=== PATIENT | male | born 1930 | race Caucasian/White ===

== ENCOUNTER → 2017-04-06 | Outpatient (CLI) | payer MEDICARE ==
[~2017-04-06] MED LIST: ECOTRIN81 M1 PO; Ecotrin325 MG PO; LATANOPROST2.5 ML OU; TRIAMTERENE W/H1 CAP PO; ZOLOFT50 MG PO
== END | disposition home or self-care (01) ==
LOC: US 12:46
DX: E04.1 Nontoxic single thyroid nodule (principal)

== ENCOUNTER → 2017-04-07 | Outpatient (CLI) | payer MEDICARE | END | disposition home or self-care (01) | LOC: CT 03:41 | DX: K86.2 Cyst of pancreas (principal); R16.1 Splenomegaly, not elsewhere classified; Z90.49 Acquired absence of other specified parts of digestive tract; Z98.890 Other specified postprocedural states ==

== ENCOUNTER 2017-12-18 12:27 | Emergency (ER) | payer MEDICARE ==
[~2017-12-18] VITALS: Ht 177.8 cm; Wt 95.3 kg
--- NOTE | ~2017-12-18 | EKG ---
[place], [place] ELECTROCARDIOGRAM REPORT NAME: GREGORIO GOODSON UNIT #: [id number] ROOM: DOCTOR: EPIPHANY DRAFT REPORT BIRTHDATE: [birth year] [facility] Test Date: 2017-12-18 Test Time: 13:11:23 Pat Name: GREGORIO GOODSON Department: ER Room: Gender: Safety Lead: : 1930 Requested By: DAVINA MORE Order Number: [id number] Reading MD: Calvin Dale MD Measurements Intervals [place] Rate: 79 P: -34 KS: 197 QRS: -10 QRSD: 139 T: 22 QT: 401 QTc: 460 Interpretive Statements Sinus rhythm Ventricular premature complex Right bundle branch block Electronically Signed On 12-18-2017 16:50:59 PDT by Calvin Dale MD CM:EKGRPT:ELECTROCARDIOGRAM REPORT 1311 1650 DAVINA SANTIAGO DRAFT REPORT DAVINA MORE MD
[2017-12-18] MEDS ORDERED: NORVASC5 MG PO (13:19)
[2017-12-18 13:22] LABS: BUN 19 mg/dl (7-24); CHLORIDE 100 mmol/L (98-107); CREATININE 0.92 mg/dL (0.70-1.30); POTASSIUM 4.5 mmol/L (3.5-5.1); SODIUM 137 mmol/L (136-145); TROPONIN I 0.025 ng/ml (<0.045)
== END 2017-12-18 13:35 | disposition home or self-care (01) ==
LOC: ED 12:27
PROVIDERS: Emergency Medicine
DX: I10 Essential (primary) hypertension (principal); Z90.49 Acquired absence of other specified parts of digestive tract; Z87.891 Personal history of nicotine dependence; Z79.82 Long term (current) use of aspirin

== ENCOUNTER 2018-01-01 10:05 | Emergency (ER) | payer MEDICARE ==
[~2018-01-01] VITALS: Ht 170.1 cm; Wt 95.3 kg
[~2018-01-01 10:05] MED LIST changes: +NORVASC5 MG PO
[2018-01-01 10:30] LABS: BASO % 0.5 % (0.0-1.0); EOS % 0.3 % (1.0-4.0); HEMATOCRIT 40.9 % (42.0-52.0); HEMOGLOBIN 13.6 g/dl (14.0-18.0); LYMPH # 0.7 10*3/uL (1.3-4.4); LYMPH % 8.7 % (27.0-41.0); MEAN CELL VOLUME 90.3 fl (80.0-94.0); MEAN CORPUSCULAR HGB CONC 33.3 g/dl (33.0-37.0); MEAN PLATELET VOLUME 9.5 fl (9.6-12.3); MONO # 0.5 10*3/uL (0.1-1.0); MONO % 6.7 % (3.0-9.0); NEUT # 6.6 10*3/uL (2.3-7.9); NEUT % 83.5 % (47.0-73.0); PLATELET COUNT AUTOMATED 162 10*3/uL (130-400); RED BLOOD COUNT 4.53 10*6/uL (4.50-5.90); RED CELL DISTRI WIDTH 12.9 % (0-14.5); WHITE BLOOD COUNT 7.9 10*3/uL (4.8-10.8)
[2018-01-01 10:54] LABS: URINE AMPHETAMINES < 1000 (1000ng/ml); URINE BARBITURATES < 200 (200ng/ml); URINE BENZODIAZEPINES < 200 (200ng/ml); URINE CANNABINOIDS (THC) < 50 (50ng/ml); URINE COCAINE < 300 (300ng/ml); URINE METHADONE < 300 (300ng/ml); URINE OPIATES < 300 (300ng/ml)
[2018-01-01 10:55] LABS: ALBUMIN 3.7 gm/dl (3.1-4.5); ALKALINE PHOSPHATASE 78 U/L (45-117); BUN 19 mg/dl (7-24); CHLORIDE 98 mmol/L (98-107); CREATININE 0.95 mg/dL (0.70-1.30); POTASSIUM 4.4 mmol/L (3.5-5.1); SGOT/AST 20 IU/L (3-35); SGPT/ALT 20 U/L (12-78); SODIUM 135 mmol/L (136-145); TOTAL PROTEIN 8.6 gm/dL (6.4-8.2)
[2018-01-01 10:57] LABS: URINE PHENCYCLIDINE < 25 (25ng/ml)
[2018-01-01 10:58] LABS: ACETAMINOPHEN (TYLENOL) < 5.0 ug/ml (10-30); ETHYL ALCOHOL < 3.0 mg/dl (<3)
[2018-01-01 10:59] LABS: BILIRUBIN NEGATIVE (NEGATIVE); BLOOD NEGATIVE (NEGATIVE); CLARITY CLEAR (CLEAR); COLOR YELLOW (YELLOW); GLUCOSE NEGATIVE (NEGATIVE); KETONE NEGATIVE (NEGATIVE); LEUKO ESTERASE NEGATIVE (NEGATIVE); NITRITE NEGATIVE (NEGATIVE); SPECIFIC GRAVITY >= 1.030 (1.005-1.030); UROBILINOGEN 0.2 E.U./dl (0.2-1.0)
[2018-01-01 11:09] LABS: WBC 0-2 wbc/hpf (0-5)
[2018-01-01 11:10] LABS: BACTERIA 1+; EPITHELIAL CELLS 0-2
[2018-01-01] MEDS ORDERED: BRIMONIDINE TAR10 ML OPH (12:57)
[2018-01-01] MEDS ORDERED: COSOPT 2%-0.5%10 ML OPH (12:57)
== END 2018-01-01 13:28 | disposition admitted as inpatient to this hospital (09) ==
LOC: ED 10:05
PROVIDERS: Nurse Practitioner Family
DX: F33.3 Major depressive disorder, recurrent, severe with psychotic symptoms (principal); R41.82 Altered mental status, unspecified; I10 Essential (primary) hypertension; Z87.891 Personal history of nicotine dependence; Z90.49 Acquired absence of other specified parts of digestive tract; Z79.899 Other long term (current) drug therapy

== ENCOUNTER 2018-01-01 13:14 | Inpatient (IN) | payer MEDICARE ==
[~2018-01-01] VITALS: Ht 172.7 cm; Wt 95.3 kg
--- NOTE | ~2018-01-01 | PR ---
[place], [place] PROGRESS NOTE NAME: GREGORIO GOODSON UNIT #: [id number] ROOM: 311 DOCTOR: ARETHA MANZO MD BIRTHDATE: [birth year] DOS: 01/11/2018 INTERVAL NOTE CHIEF COMPLAINT: "You can't help me, no one can." SUMMARY OF THE VISIT: The patient was interviewed after he had walked up and down the hallway with physical therapy. He engaged more readily in conversation albeit somewhat negative and nihilistic, but the conversation flowed more naturally than it had been previously and the amount of thought blocking seems to be less. He did seem to string sentences together much more naturally than he had been. He does seem to be tolerating the current medication regimen well. MENTAL STATUS: The patient is alert and oriented with some time gaps. Mood does seem to be trending towards euthymia. Affect is more appropriate. There is no tin, hypomania. There are no overt auditory or visual hallucinations, but there is still a predominant delusional system. Short-term memory has gaps. PLAN: I will increase nighttime dose of Seroquel from 50 to 100 mg at bedtime attempting to break the nihilistic delusions. I will reconsult Dr. Dallin Church, psychologist for psychotherapy. We will continue to engage in individual and loyola milieu activity, returning then to the least restrictive environment when psychiatrically stable. ARETHA MANZO MD CM:PNTRANS 0849 [id number] ARETHA MANZO MD 01/11/18 1007 interface
--- NOTE | ~2018-01-01 | CON ---
[place], [place] REPORT OF CONSULTATION NAME: GREGORIO GOODSON UNIT #: [id number] ROOM: 311 DOCTOR: SKYE MARK ED.DJERAD) BIRTHDATE: [birth year] DOS: 01/05/2018 HISTORY OF PRESENT ILLNESS: The patient is an 87-year-old male referred by Dr. Manzo for evaluation. At the present time, he is on the Senior Behavioral Health Unit at [facility]. He is a and has 6 children. Two of his children were present during this interview. He is retired from the [employer] in [place], [place]. His family physician is Dr. Ramires in [place], [place]. His medical history is pertinent for depression and hypertension. He denies any significant substance abuse issues whatsoever and his family did verify this. His medications include Norvasc, Invega, Vistaril, Geodon, Ativan, and amlodipine. This patient was awake, alert and oriented in all three spheres. He denies any suicidal ideation or plan. He denies any active hallucinations, although he states he did have hallucinations earlier during his stay at the hospital when he was on a different medication. Those have since subsided. He is doing much better this evening according to his family. He was recently administered a dose of Ativan and his behavior and mood improved significantly. He had been treated in the past by Dr. Quinonez, who placed him on Zoloft about 10 years ago. He took it for a while and then no longer needed it, recently told Dr. Ybarra he was feeling more depressed again. They restarted his Zoloft and when that did not work as well, they put him on Celexa. The last few months, he has been extremely sleep deprived and depressed. He does have delusional thoughts, thinking he may have harmed one of his stepchildren and worries about his taxes. His son indicated there is no validity to his concerns whatsoever; however, the patient had difficulty being reassured that there were no problems with the IRS or with his stepchild. As I interviewed him, his mood improved significantly. He had no difficulty communicating whatsoever and was quite lucid. He decided to quit taking his antidepressant medications over the past Day weekend, and when he told his family that he needed to slowly get off these medications because he thought they were causing him more harm than good. He did so over a several-week period. He continued to be delusional, however, and somewhat paranoid. He has no history of paranoia or delusional thoughts whatsoever. Most likely, his delusional thoughts and paranoia stem from either his depression or his medications. I will discuss the case further with Dr. Manzo in the morning, but this evening, he had improved significantly and was quite communicative with me and with his family. DIAGNOSES: Major depressive disorder with psychotic features-severe. RECOMMENDATIONS: 1. The patient will most likely need some type of outpatient counseling and followup. 2. The patient should return home with his family when he is discharged. Thank you very much for this consult. [place], [place] REPORT OF CONSULTATION NAME: GREGORIO GOODSON UNIT #: [id number] ROOM: [facility] DOCTOR: SKYE MARK ED.D (JERAD) BIRTHDATE: [birth year] SKYE MARK ED.D CM:CONSTR:REPORT OF CONSULTATION 2204 01/06/18 0351 sherine MANZO MD
--- NOTE | ~2018-01-01 | PR ---
[place], [place] PROGRESS NOTE NAME: GREGORIO GOODSON UNIT #: [id number] ROOM: 311 DOCTOR: ARETHA MANZO MD BIRTHDATE: [birth year] DOS: 01/05/2018 INTERVAL NOTE CHIEF COMPLAINT: "It is too late. There is no hope now." SUMMARY OF THE VISIT: The patient was interviewed in the dining area where he was sitting with a male peer. He stared straight ahead and did not make any eye contact with me. He was very ruminative and nihilistic. He continued to state that there was no hope and that it was too late now. He was vague; however, and was not able to explain to me what was that had happened to him. He did report that he is continuing to have bad memories and is also having issues with his memory. MENTAL STATUS: He is alert and oriented. He remains horribly depressed, very nihilistic in his thinking. He is grossly delusional. There is no tin or hypomania. Memory does have some gaps. PLAN: I will go ahead and start him on Exelon patch at this point just to see if this will improve and help maintain his memory function as well as ADLs, behavior. We will consult Dr. Dallin Church, psychologist also to further help elucidate what is bothering this gentleman and see if we can put into effect a plan to help reverse the negative trend. ARETHA MANZO MD CM:PNTRANS [id number] ARETHA MANZO MD 01/05/18 1443 interface
--- NOTE | ~2018-01-01 | DS ---
[place], [place] DISCHARGE SUMMARY NAME: [facility] GOODSON [id number] UNIT #: [id number] ROOM: 311 DOCTOR: ARETHA MANZO MD BIRTHDATE: [birth year] DOS: 01/13/2018 CHIEF COMPLAINT: "There is no hope." HISTORY OF PRESENT ILLNESS: This is an 87-year-old white male who was brought to [facility] Emergency Room by his son due to worsening depression. The patient has a lengthy history of depression. The patient had most recently been put on Zoloft per the family's report and following the start of the Zoloft, he did have a significant decline. They noted increased mood swings followed by increased delusions where he became very negative and thought that he was affecting other people health and that he had done bad things in this world and needed to be punished. The patient also endorsed significant neurovegetative symptoms upon admission that included poor sleep and appetite and lack of ADLs. Because of his significant decompensation, the patient was admitted to the U to rule out further organic factors, to stabilize on medication and to engage in individual and loyola milieu activity and determining the least restrictive environment to which he could be discharged. SUMMARY OF HOSPITAL COURSE: The patient was admitted to the unit where he was started on Invega 3 mg a day to combat the nihilistic delusions. Additionally, Remeron 15 mg at bedtime was utilized to combat the depression, aid sleep and appetite and improve his overall attitude. Over the next several days, it became evident that the Remeron was significantly aiding sleep and appetite; however, with the Invega not only did it not seem to be working, but he did seem to be experiencing some mild extrapyramidal symptoms with tremor and also some akathisia. Invega was discontinued in lieu of Ativan at first, nurses did report that there was an overriding anxiety component and when given p.r.n. Ativan, he became much more conversant and much more engaging in activities. The Ativan was started at a dose of 1 mg 3 times a day, which did seem to be too much for him and the dose was gradually pulled back to 0.5 mg twice a day with good effect. Additionally, Seroquel was started on the patient to combat the nihilistic delusions, again first at a low dose of 50 mg twice daily, then the nighttime dose was increased to 100 mg at bedtime. With the addition of the Seroquel, the patient's nihilistic delusions began to budge. He became much more talkative and was able to actually string sentences together. He still persisted in believing that he was causing people harm and that he would not get better, although he was able to put these thoughts much more elaborately in conversation. Staff did notice a gradual improvement as did family and the patient was discharged back home to allow further time for the medication to work. At the time of discharge, he convincingly denied any suicidal thoughts or homicidal thoughts as well as denying any medication side effects from the medicines themselves. MENTAL STATUS AT DISCHARGE: The patient is alert and oriented with some time gaps. Mood does seem to be gradually trending towards euthymia. Affect is much more appropriate. There is no tin or hypomania. There is still the persistence of nihilistic delusions, but these seem to be lessening in frequency and intensity. Short-term memory has gaps. DIAGNOSES AT THE TIME OF DISCHARGE: Major depression, recurrent with psychotic [place], [place] DISCHARGE SUMMARY NAME: GREGORIO GOODSON UNIT #: [id number] ROOM: 311 DOCTOR: ARETHA MANZO MD BIRTHDATE: [birth year] features. DISPOSITION: All of his prescriptions except the Ativan have been e-scribed to [facility] pharmacy. The Ativan has been printed. The patient will have outpatient followup in the community. At the time of discharge, there were no acute medical issues and psychiatrically, he was stable enough to be returned home. ARETHA MANZO MD CM:DISCHARG ARETHA MANZO MD 01/13/1835 interface
--- NOTE | ~2018-01-01 | PR ---
[place], [place] PROGRESS NOTE NAME: GREGORIO GOODSON UNIT #: [id number] ROOM: 311 DOCTOR: ARETHA MANZO MD BIRTHDATE: [birth year] DOS: 01/04/2018 INTERVAL NOTE CHIEF COMPLAINT: "I just think of all the things I did wrong in the past." SUMMARY OF THE VISIT: The patient was interviewed as he sat at the back end of the dining area. He looked forlorn and depressed. He made very little eye contact, but instead stared forward as he conversed with me. He was very nihilistic in his conversation focused on either real or misperceived believes that he had done many things wrong in his younger days. I attempted to redirect and support, but to no avail. He continues to be very depressed and very negative. MENTAL STATUS: He remains alert and oriented with some time gaps. Mood does seem to be very depressed and sad. Affect flat, blunted, and constricted. He does seem nihilistic in his beliefs and unwavering in them. There is no hypomania or tin. There are no active auditory or visual hallucinations. Memory has some gaps. PLAN: I will increase his Remeron from 15 to 30 mg at bedtime, maintain his current dose of the Invega at 6 mg a day. Continue to support and monitor, engage in individual and loyola milieu activities, returning then to the least restrictive environment when psychiatrically stable. ARETHA MANZO MD CM:PNTRANS [id number] ARETHA MANZO MD 01/04/181923 interface
--- NOTE | ~2018-01-01 | PR ---
[place], [place] PROGRESS NOTE NAME: GREGORIO GOODSON UNIT #: [id number] ROOM: 311 DOCTOR: ARETHA MANZO MD BIRTHDATE: [birth year] DOS: 01/06/2018 CHIEF COMPLAINT: "It is too late." SUMMARY OF THE VISIT: The patient was interviewed as he was being walked in the hallway with physical therapy. The patient had a very blank stare. I attempted on multiple occasions to engage him in conversation, for the most part his responses to me were very short and simple and at times he process so slowly he did not respond, the physical therapy, individual that was working with him did state that the patient was able to converse briefly with him. He seems to have a significant amount of thought blocking. Nurses report that he does seem to do better after he receives his p.r.n. Ativan that seems to result in a decrease in his anxiety and the resultant increase in his ability to converse. MENTAL STATUS: He is alert and oriented to self. He does process so slowly. It is unclear if he realizes he is in the hospital and certainly I doubt he realizes how long he has been here. His responses are short, simple, fragmented and disjointed. Memory does have gaps. PLAN: I have ordered Ativan 0.5 mg t.i.d. straight to see if this will decrease some of his anxiety and allow him to converse more readily. I am also concerned that the Invega 6 mg in the morning may be too strong and may be causing him some emotional blunting and causing him to be more flat. I will lower Invega to 3 mg in the morning. I will simultaneously increase Exelon patch to 9.5 as I increased it to its maximum dose of 13.3. We will engage in individual and loyola milieu activity, returning to the least restrictive environment when psychiatrically stable. ARETHA MANZO MD CM:PNTRANS 4 45 ARETHA MANZO MD 01/06/18 1047 interface
--- NOTE | ~2018-01-01 | PR ---
[place], [place] PROGRESS NOTE NAME: GREGORIO GOODSON UNIT #: [id number] ROOM: 311 DOCTOR: ARETHA MANZO MD BIRTHDATE: [birth year] DOS: 01/08/2018 CHIEF COMPLAINT: "The police are going to come and put me in group home." SUMMARY OF THE VISIT: The patient was interviewed as he was sitting in the dining area. He looked very forlorn and very anxious. He openly endorsed anxiety and states that he is fearful that the police are going to come and take him to group home for things he has done in his past. He was not able to tell me exactly what bad things he has done. He continues to ruminate and be very nihilistic. Nurses report that over time, the Ativan does seem to help and that by the late afternoon, early evening he seems better. He is tolerating the current medication regimen well. MENTAL STATUS: He is alert and oriented with time gaps. Mood does seem to be depressed with anxious overtones. He is also very nihilistic and delusional. Memory has gaps. PLAN: I will increase Ativan to 1 mg 3 times daily starting at 7:00 a.m., so that we can begin a positive trend for the day. Monitor for risk, benefit, engage in individual and loyola milieu activity, returning to the least restrictive environment when stable. ARETHA MANZO MD CM:PNTRANS 0920 1007 ARETHA MANZO MD 01/08/18 1007 interface
--- NOTE | ~2018-01-01 | PR ---
[place], [place] PROGRESS NOTE NAME: GREGORIO GOODSON UNIT #: [id number] ROOM: 311 DOCTOR: ARETHA MANZO MD BIRTHDATE: [birth year] DOS: 01/07/2018 INTERVAL NOTE CHIEF COMPLAINT: "I don't know, I can't remember what I did." SUMMARY OF THE VISIT: The patient was interviewed as he sat in the dining area. He had about a half to two-thirds of his breakfast eaten. He engaged in conversation, but his conversation was fragmented and disjointed. He had a great deal of thought blocking noted. He was very ruminative in his thinking and very nihilistic. He continued to hint of actions he did as in the past, but could not remember them. I later called Dr. Dallin Church, psychologist, who had the opportunity to talk to both the patient and the patient's family. He is in agreement that the patient is suffering from major depression, recurrent with psychotic features and feels that his nihilism is that and that there is no reality backing his thoughts. Nurses do report that when the patient does receive Ativan, it seems to relax him enough that he is able to converse more readily. MENTAL STATUS: He is alert and oriented. There are some gaps noted. His thoughts are fragmented and disjointed and it is very difficult for him to string together a sentence. He remains horribly depressed and very flat and blunted. There is no tin or hypomania noted. There is the presence of significant nihilistic delusions. Memory does have gaps. PLAN: I will discontinue Invega as it does not seem to be effective at combating the psychotic symptomatology. Instead, I will use Seroquel 25 mg in the morning and 50 mg at night. This should also have a calming effect for his anxiety level and the low risk of extrapyramidal symptoms should help him feel more comfortable during the day. I will renew his p.r.n. Ativan should he require any intervention. We will attempt to continue to engage him in individual and loyola milieu activity, returning then to the least restrictive environment when psychiatrically stable. [place], [place] PROGRESS NOTE NAME: GREGORIO GOODSON UNIT #: [id number] ROOM: 311 DOCTOR: ARETHA MANZO MDDATE: [birth year] ARETHA MANZO MD CM:MARY 4 1000 ARETHA MANZO MD 01/07/18 1001 interface
--- NOTE | ~2018-01-01 | CON ---
[place], [place] REPORT OF CONSULTATION NAME: GREGORIO GOODSON UNIT #: [id number] ROOM: 311 DOCTOR: PHD FESTUS EDMAR BIRTHDATE: [birth year] DOS: 01/05/2018 HISTORY OF PRESENT ILLNESS: The patient is an 87-year-old male referred by Dr. Villar with concerns for depression. At the present time, the patient is on the Senior Behavioral Health Unit at [facility]. The patient is a and lives with his son. He says he has 6 children. 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 He is not retired. He denied alcohol, tobacco and illegal drug use. PAST MEDICAL HISTORY: Hypertension, depression. MEDICATIONS: Remeron, Norvasc, Invega, Vistaril, Geodon, Ativan. The patient was sitting comfortably, in no apparent distress. He was awake, alert and oriented to person, place and time. Eye contact and social skills were poor. The patient reports significant depression related to excessive guilt over things he has done in the past. He was vague in his reporting of these events. Affect was flat. The patient denied suicidal and homicidal ideation, plan and intent. He states that there is "no hope" for him and that the world is "going to pieces." Speech was slow and soft. Expressive and receptive language appeared within normal limits on a conversational basis. Thought process was fixated on his inappropriate guilt and content was noteworthy for mood congruent, delusional beliefs that he is responsible for hurting many people. He could not articulate how he had hurt them or who they were. He stated that he was currently seeing the bodies of people he had hurt littered on the floor beneath him. He stated he is certain that he has hurt many people, but he is not sure how he has done so. Insight and judgment were poor. Explored the patient's negative fixed believes, utilized CBT and supportive therapy interventions. The patient appeared to minimally benefit. He stated that he believes he is "beyond help." DIAGNOSES: Major depressive disorder, recurrent, severe with psychotic features. RECOMMENDATIONS: The patient may benefit from individual counseling as an outpatient; however, he stated he is not interested at this time. I will follow the patient as needed during his hospitalization. Milli Hernandez, PhD CM:CONSTR:REPORT OF CONSULTATION 0944 01/05/18 1036 interface
--- NOTE | ~2018-01-01 | PR ---
[place], [place] PROGRESS NOTE NAME: GREGORIO GOODSON UNIT #: [id number] ROOM: 311 DOCTOR: ARETHA MANZO MD BIRTHDATE: [birth year] DOS: 01/12/2018 CHIEF COMPLAINT: "I don't think you can help me, I do not think I will be able to go home tomorrow." SUMMARY OF THE VISIT: The patient was interviewed as he sat eating his lunch. He had most of his lunch eaten. He did stop and engage in conversation. His conversation does seem to be gradually improving as he is able to string more words and sentences together. He still remains negative, stating that he does not think he can get better. I discussed with him the possibility of going home tomorrow to which he replied "I don't think that is going to happen." The positive on this; however, is that he does not seem to have the significant thought blocking and processing difficulties that he experienced at this time last week. I see no side effects from the medicine. There is no sedation, somnolence, extrapyramidal symptoms or tardive dyskinesia. MENTAL STATUS: He is alert and oriented to person, place, approximate to time. Mood does seem to be gradually trending towards euthymia and affect is much more appropriate. There is no tin or hypomania noted. He does remain neolistic. Nurses report at times this is wavering. For me, he was fairly consistent in his beliefs. Memory has some minor gaps. PLAN: I will maintain his current psychotropics. We will arrange for the family members to come in for a family session with me tomorrow morning. We will discuss our options regarding his further care. ARETHA MANZO MD CM:PNTRANS 1233 [id number] ARETHA MANZO MD 01/22/18 0832 interface
[~2018-01-01 13:14] MED LIST changes: +BRIMONIDINE TAR10 ML OPH; +COSOPT 2%-0.5%10 ML OPH
[2018-01-01 14:16] VITALS: BP 156/82
[2018-01-01 14:53] VITALS: BP 156/82
[2018-01-01 20:46] VITALS: BP 145/76
[2018-01-02 06:46] LABS: THYROID STIM HORMONE (HS) 4.04 uIU/ml (0.358-4.75)
[2018-01-02 07:22] VITALS: BP 124/76
[2018-01-02 07:43] LABS: VITAMIN D, 25-HYDROXY 36.8 ng/mL (30-100)
[2018-01-02 19:47] VITALS: BP 113/62
[2018-01-03 07:50] VITALS: BP 122/70
[2018-01-03 20:00] VITALS: BP 140/66
[2018-01-03 20:17] VITALS: BP 140/66
[2018-01-04 08:00] VITALS: BP 122/61
[2018-01-04 20:00] VITALS: BP 125/52
[2018-01-05 08:49] VITALS: BP 104/40
[2018-01-05 19:56] VITALS: BP 139/95
[2018-01-06 07:32] VITALS: BP 111/61
[2018-01-06 19:51] VITALS: BP 124/60
[2018-01-07 08:25] VITALS: BP 109/60
[2018-01-07 19:46] VITALS: BP 129/64
[2018-01-08 07:45] VITALS: BP 118/64
[2018-01-08 19:46] VITALS: BP 129/98
[2018-01-09 08:20] VITALS: BP 127/67
[2018-01-09 19:27] VITALS: BP 122/68
[2018-01-10 06:54] VITALS: BP 139/69
[2018-01-10 20:06] VITALS: BP 124/74
[2018-01-11 08:47] VITALS: BP 129/69
[2018-01-11 20:38] VITALS: BP 132/81
[2018-01-12 08:04] VITALS: BP 108/72
[2018-01-12 14:12] VITALS: BP 102/62
[2018-01-13 07:01] VITALS: BP 131/61
[2018-01-13] MEDS ORDERED: QUETIAPINE FUM100 M3 PO (09:01)
[2018-01-13] MEDS ORDERED: MIRTAZAPINE30 M2 PO (09:01)
[2018-01-13] MEDS ORDERED: LORAZEPAM0.5 MG PO (09:01)
[2018-01-13] MEDS ORDERED: QUETIAPINE FUMA25 MG PO (09:01)
[2018-01-13] MEDS ORDERED: EXELON13.3 MG/21 T (09:01)
== END 2018-01-13 12:49 | disposition home or self-care (01) | DRG 885 ==
LOC: 3N 13:14
PROVIDERS: Psychiatry & Neurology Psychiatry
DX: F33.3 Major depressive disorder, recurrent, severe with psychotic symptoms (principal); E87.1 Hypo-osmolality and hyponatremia; K57.90 Diverticulosis of intestine, part unspecified, without perforation or abscess without bleeding; D50.9 Iron deficiency anemia, unspecified; R29.898 Other symptoms and signs involving the musculoskeletal system; I10 Essential (primary) hypertension; F41.9 Anxiety disorder, unspecified; H40.9 Unspecified glaucoma; Z85.46 Personal history of malignant neoplasm of prostate; Z90.49 Acquired absence of other specified parts of digestive tract; Z80.52 Family history of malignant neoplasm of bladder; Z82.49 Family history of ischemic heart disease and other diseases of the circulatory system; Z87.891 Personal history of nicotine dependence